=== PATIENT | male | born 1935 ===

== ENCOUNTER → 2016-12-14 | Outpatient (REF) | payer MEDICARE ==
[2016-12-14 14:54] LABS: VITAMIN B12 LEVEL 411 PG/ML (247-911)
[2016-12-14 14:55] LABS: FOLATE > 24.0 NG/ML (>5.4)
[2016-12-14 15:22] LABS: TOTAL PROTEIN 7.6 GM/DL (6.4-8.2)
[2016-12-15 09:57] LABS: ALBUMIN 4.26 GM/DL (3.29-5.55); GAMMA GLOBULIN % 14.7 % (11.1-18.8)
== END ==
LOC: M LAB REF 13:40
PROVIDERS: ATTEND Psychiatry & Neurology Neurology
DX: R26.9 Unspecified abnormalities of gait and mobility (principal); G62.9 Polyneuropathy, unspecified

== ENCOUNTER → 2019-01-23 | Outpatient (REF) | LOC: M LAB LCGH 15:10 | PROVIDERS: ATTEND Surgery | DX: D64.9 Anemia, unspecified (principal); K46.9 Unspecified abdominal hernia without obstruction or gangrene ==